=== PATIENT | female | born 2005 | race Caucasian/White ===

== ENCOUNTER 2023-12-16 08:28 | Emergency (ER) | payer OTHER, SELFPAY ==
[2023-12-16 08:34] VITALS: BP 135/79; PULSE 95; RESP 14; TEMP 36.6; O2SAT 99
--- NOTE | 2023-12-16 09:17 | ED.ABDPAIN ---
HPI - Abdominal Pain General Chief Complaint: Abdominal Pain Stated Complaint: pressure/pain under ribs Time Seen by Provider: 12/16/23 08:48 Source: patient, RN notes reviewed and old records reviewed Mode of arrival: ambulatory Limitations: no limitations History of Present Illness HPI narrative: 4-5 days of abdominal pain above the umbilicus with some radiation to left upper quadrants at times. Patient reports that she is a little constipated denies any nausea or vomiting, denies back pain or any burning or pain with urination. Patient reports that her discomfort is worse after she eats, took alia Delmita with some mild relief reported. Patient reports no fevers, chills or sweats or any body aches, MD elicited complaint: abdominal pain Onset (ago): day(s) (4-5 days) Severity: moderate Migration to: [facility] Exacerbating factors: eating Treatments prior to arrival: other (alia seltzer) Related Data Home Medications Medication Instructions Recorded Confirmed aspirin 81 mg tablet,delayed 81 mg PO DAILY 01/31/23 07/25/23 release (Adult Aspirin Regimen) estradiol-norethindrone acet 1 1 tablet PO DAILY 01/31/23 07/25/23 mg-0.5 mg tablet Allergies Allergy/AdvReac Type Severity Reaction Status Date / Time No Known Allergies Allergy Unverified 07/25/23 15:05 Review of Systems Review of Systems: CONSTITUTIONAL: Denies fever, chills, or sweats. ENT: Denies rhinorrhea, congestion, sore throat, or otalgia. CARDIOVASCULAR: Denies chest pain, palpitations, or edema. RESPIRATORY: Denies cough or dyspnea. GASTROINTESTINAL: Reports above umbilical abdominal pain which radiates to left,no nausea, vomiting, diarrhea.some constipation reported GENITOURINARY: Denies dysuria or hematuria. SKIN: Denies rash or itching. MUSCULOSKELETAL: Denies back pain, joint pain, or myalgia. NEUROLOGIC: Denies headache, numbness, or weakness. All systems reviewed & are unremarkable except as noted in HPI and below PMFSH Past Medical History Medical History (Updated 12/17/23 @ 14:13 by Eun Yanez NP) Asthma DiGeorge syndrome Hx of migraines Surgical History Surgical History (Updated 12/17/23 @ 14:12 by Eun Yanez NP) H/O oral surgery History of heart valve repair Social History Social History Smoking status: Never smoker Lack of Transportation: No Lack of Food: Never True Current Housing: I Have Housing Concerned About Future Housing: No Difficulty Paying Gas/Electric Bills: No Difficulty Paying for Meds: No Currently Unemployed: No Education: High School Diploma/GED Difficulty w/ Childcare or Family Care: No Comments At time of signature, agree with nursing past medical, surgical, social and family history. There is no relevant family history pertinent to the presenting complaint Exam Narrative: GENERAL: Well-appearing, well-nourished, and in no acute distress. HEAD: Normocephalic, atraumatic. EYES: PERRLA, conjunctivae clear, and EOMI. ENT: Nares clear. Mucous membranes moist. Oropharynx without edema, erythema, or lesions. Tonsils not enlarged and without exudate. NECK: Supple. No lymphadenopathy CHEST: Speaks in full sentences. No respiratory distress. HEART: Regular rate and rhythm. ABDOMEN: Soft, flat, nondistended. No guarding, rebound tenderness, or rigid. No pulsatilla masses. Bowel sounds present in all four quadrants. No organomegaly. Negative Saravia?s sign. No periumbilical tenderness. No Supra public tenderness or distension.no McBurney tenderness Good femoral pulses bilaterally. No hernia noted. No scars or surface trauma.reports some discomfort to area above umbilicus with radiation to upper left abdomen. SKIN: Warm, dry, no rash. NEURO:? Alert and oriented x3. PSYCH: Normal mood and affect Course Course Emergency Course: Patient is aware of diagnosis, understands and agrees to treatment plan.
== END 2023-12-16 09:36 | disposition home or self-care (01) ==
PROVIDERS: Emergency Provider Registered Nurse
DX: R10.9 Unspecified abdominal pain (principal); R10.12 Left upper quadrant pain; J45.909 Unspecified asthma, uncomplicated; D82.1 Di George's syndrome; Z79.82 Long term (current) use of aspirin
CPT/HCPCS: 99213; G0463

== ENCOUNTER 2024-08-04 11:11 | Emergency (ER) | payer OTHER, SELFPAY ==
[2024-08-04 11:40] VITALS: BP 99/55; PULSE 82; RESP 20; TEMP 36.3; O2SAT 98
--- NOTE | 2024-08-04 12:45 | ED.GENADULT ---
HPI - General Adult General Chief complaint: Ear Stated complaint: Ear Problem Source: patient and family Mode of arrival: ambulatory Limitations: other (hearing deficits) History of Present Illness HPI narrative: Patient presents for evaluation of hearing loss bilaterally. She and her family members had GI symptoms including vomiting and diarrhea this past weekend. She then developed an occasional cough, hearing loss bilaterally and left sided otalgia. No fever, chills or SOB. She does not smoke. Related Data Home Medications ?Medication ?Instructions ?Recorded ?Confirmed ?Last Taken ?Type aspirin 81 mg tablet,delayed 81 mg PO DAILY 01/31/23 02/14/24 Unknown History release (Adult Aspirin Regimen) estradiol-norethindrone acet 1 1 tablet PO DAILY 01/31/23 02/14/24 Unknown History mg-0.5 mg tablet Allergies Allergy/AdvReac Type Severity Reaction Status Date / Time No Known Allergies Allergy Verified 08/04/24 12:01 Review of Systems Review of Systems: CONSTITUTIONAL: Denies fever, chills, or sweats. EYES: Denies visual changes, redness, or discharge. ENT: Reports bilateral hearing loss. Reports left-sided otalgia. Denies sore throat, tinnitus and drainage from the ears. CARDIOVASCULAR: Denies chest pain, palpitations, or edema. RESPIRATORY: Reports cough. Denies shortness of breath. GASTROINTESTINAL: Denies abdominal pain, nausea, vomiting, or diarrhea. GENITOURINARY: Denies dysuria or hematuria. SKIN: Denies rash or itching. MUSCULOSKELETAL: Denies back pain, joint pain, or myalgia. NEUROLOGIC: Denies headache, numbness, dizziness, or weakness. PSYCHIATRIC: Denies anxiety or depression. [facility], LAT[facility] Past Medical History Medical History Hx of migraines Asthma DiGeorge syndrome Surgical History Surgical History History of heart valve repair H/O oral surgery Family History Family History (Updated 08/04/24 @ 12:49 by EKATERINA Dc, TEE) Mother Family history non-contributory Social History Social History Smoking status: Never smoker Lack of Transportation: No Lack of Food: Never True Current Housing: I Have Housing Concerned About Future Housing: No Difficulty Paying Gas/Electric Bills: No Difficulty Paying for Meds: No Currently Unemployed: No Education: High School Diploma/GED Difficulty w/ Childcare or Family Care: No Exam Narrative: GENERAL: Well-appearing, well-nourished, and in no acute distress. HEAD: Normocephalic, atraumatic. EYES: PERRLA and EOMI. ENT: Nares clear, no rhinorrhea or epistaxis. Mucous membranes moist. Oropharynx without tonsillar hypertrophy exudate or other lesions. Bilateral TM's are erythematous and bulging NECK: Supple. No adenopathy or masses. No carotid bruits or JVD CHEST: Clear to auscultation. No respiratory distress. No wheezes rales or rhonchi HEART: Regular rate and rhythm. No murmur heard. Normal peripheral pulses. ABDOMEN: Soft, nontender, nondistended, normal active bowel sounds. EXTREMITIES: Normal range of motion. No edema. SKIN: Warm, dry, no rash. NEURO: No focal deficits. Alert and oriented x3. PSYCH: Normal mood and affect. Course Course Emergency Course: This is a 19-year-old female who presented for evaluation of bilateral hearing loss in left-sided otalgia. She has evidence of otitis media on exam. Will dc with augmentin. She may take OTC agents for pain and symptom management. Follow up with primary provider. Go to the ER for worsening symptoms. Pt in agreement with plan of care. Level of Care: Express Care Visit Vital Signs Vital signs: Vital Signs Temperature 36.3 C L 08/04/24 11:40 Pulse Rate 82 08/04/24 11:40 Respiratory Rate 20 08/04/24 11:40 Blood Pressure 99/55 L 08/04/24 11:40 Pulse Oximetry 98 08/04/24 11:40 Oxygen Delivery Room Air 08/04/24 11:40 Temperature 36.3 C L 08/04/24 11:40 Pulse Rate 82 08/04/24 11:40 Respiratory Rate 20 08/04/24 11:40 Blood Pressure 99/55 L 08/04/24 11:40 Pulse Oximetry 98 08/04/24 11:40 Oxygen Delivery Room Air 08/04/24 11:40 Medical Decision Making Vital Signs Vital Signs: Vital Signs Temperature 36.3 C L 08/04/24 11:40 Pulse Rate 82 08/04/24 11:40 Respiratory Rate 20 08/04/24 11:40 Blood Pressure 99/55 L 08/04/24 11:40 Pulse Oximetry 98 08/04/24 11:40 Oxygen Delivery Room Air 08/04/24 11:40 Temperature 36.3 C L 08/04/24 11:40 Pulse Rate 82 08/04/24 11:40 Respiratory Rate 20 08/04/24 11:40 Blood Pressure 99/55 L 08/04/24 11:40 Pulse Oximetry 98 08/04/24 11:40 Oxygen Delivery Room Air 08/04/24 11:40 Discharge Plan Discharge Clinical Impression: Otitis media Patient Disposition: Home, Self-Care Condition: Stable Instructions: Antibiotic Form, Ear Infection (ED) Patient Language: Spanish Prescriptions: New amoxicillin-pot clavulanate 875-125 mg tablet 1 tablet PO Q12H Qty: 20 0RF No Action estradiol-norethindrone acet 1-0.5 mg tablet 1 tablet PO DAILY aspirin [Adult Aspirin Regimen] 81 mg tablet,delayed release (DR/EC) 81 mg PO DAILY Follow-up/Referrals: Khanh,Polly Palacio [Primary Care Provider] - Time of Disposition: 12:44
== END 2024-08-04 12:45 | disposition home or self-care (01) ==
PROVIDERS: Emergency Provider Nurse Practitioner; PCP Nurse Practitioner
DX: H66.93 Otitis media, unspecified, bilateral (principal); J45.909 Unspecified asthma, uncomplicated; D82.1 Di George's syndrome
CPT/HCPCS: 99213; G0463